=== PATIENT | male | born 1955 | race Two or more races ===

== ENCOUNTER 2018-02-10 17:23 | Emergency (ER) | payer SELFPAY ==
[2018-02-10 17:52] LABS: ADD MAN DIFF? NO
[2018-02-10 17:54] LABS: BASO # 0.1 x10^3/uL (0.0-0.2); BASO % 1 % (0-3); EOS # 0.1 x10^3/uL (0.0-0.7); EOS % 1 % (0-3); HEMATOCRIT 45.4 % (39.0-53.0); HEMOGLOBIN 16.1 g/dL (13.0-17.5); LYMPH # 1.6 x10^3/uL (1.0-4.8); LYMPH % 12 % (24-48); MEAN CORPUSCULAR HEMOGLOBIN 31 pg (25-35); MEAN CORPUSCULAR HGB CONC 35 g/dL (31-37); MEAN CORPUSCULAR VOLUME 88 fL (79-100); MONO # 0.9 x10^3/uL (0.0-1.1); MONO % 7 % (0-9); NEUT # 10.8 x10^3uL (1.8-7.7); NEUT % 81 % (31-73); PLATELET COUNT 238 x10^3/uL (140-400); RED BLOOD COUNT 5.13 x10^6/uL (4.30-5.70); RED CELL DISTRIBUTION WIDTH 13.2 % (11.5-14.5); WHITE BLOOD COUNT 13.4 x10^3/uL (4.0-11.0)
[2018-02-10 18:02] LABS: INR 1.1 (0.8-1.1); PROTHROMBIN TIME PATIENT 13.4 SEC (11.7-14.0)
[2018-02-10 18:06] LABS: ANION GAP 8 (6-14); BLOOD UREA NITROGEN 8 mg/dL (8-26); BUN/CREATININE RATIO 11 (6-20); CALCIUM 8.4 mg/dL (8.5-10.1); CARBON DIOXIDE 27 mmol/L (21-32); CHLORIDE 101 mmol/L (98-107); CREATININE 0.7 mg/dL (0.7-1.3); GFR 114.3; GLUCOSE 316 mg/dL (70-99); SODIUM 136 mmol/L (136-145)
[2018-02-10 18:08] LABS: ETHANOL < 10 mg/dL (0-10)
[2018-02-10 18:12] LABS: ALBUMIN 3.6 g/dL (3.4-5.0); ALBUMIN/GLOBULIN RATIO 0.9 (1.0-1.7); ALK PHOS 144 U/L (46-116); ALT (SGPT) 19 U/L (16-63); AST (SGOT) 20 U/L (15-37); LIPASE 153 U/L (73-393); MAGNESIUM 2.1 mg/dL (1.8-2.4); TOTAL BILIRUBIN 0.6 mg/dL (0.2-1.0); TOTAL PROTEIN 7.6 g/dL (6.4-8.2)
[2018-02-10 18:14] LABS: TROPONINI < 0.017 ng/mL (0.000-0.055)
[2018-02-10 18:20] LABS: CKMB INDEX 0.3 % (0-4); CKMB MASS 1.5 ng/mL (0.0-3.6); CREATINE KINASE 485 U/L (39-308)
[2018-02-10 18:20] LABS: NT-PRO BNP 33 pg/mL (0-124)
[2018-02-10] MEDS: LIDO:MAALOX 1:1 20 ML SINGLE DOSE. SWSW (18:21)
[2018-02-10] MEDS: IV NORMAL SALINE 1000ML BAG 1,000 ML IV (18:21)
[2018-02-10] MEDS: PANTOPRAZOLE IV PUSH 40 MG VIAL. IVP (18:22)
[2018-02-10 18:52] LABS: BILIRUBIN,URINE NEGATIVE (NEG); CLARITY,URINE CLEAR; COLOR,URINE YELLOW; GLUCOSE,URINE >=1000 mg/dL (NEG); NITRITE,URINE NEGATIVE (NEG); PH,URINE 5.5; PROTEIN,URINE NEGATIVE (NEG-TRACE); UROBILINOGEN,URINE 0.2 mg/dL (0.2 mg/dL)
[2018-02-10 18:59] LABS: BARBITURATES NEG (NEG); BENZODIAZEPINES NEG (NEG); CANNABINOIDS NEG (NEG); COCAINE NEG (NEG); METHADONE NEG (NEG); OPIATES NEG (NEG); PHENCYCLIDINE NEG (NEG)
[2018-02-10 19:01] LABS: AMPHETAMINE/METHAMPHETAMINE NEG (NEG); BACTERIA,URINE 0 /HPF (0-FEW); ETHANOL, URINE NEG (NEG); RBC,URINE RARE /HPF (0-2); SQUAMOUS EPITHELIAL CELL,UR OCC /LPF; WBC,URINE RARE /HPF (0-4); YEAST,URINE PRESENT /HPF
== END 2018-02-10 20:40 | disposition home or self-care (01) ==
LOC: ER 17:23
DX: K21.9 Gastro-esophageal reflux disease without esophagitis (principal); E11.8 Type 2 diabetes mellitus with unspecified complications
CPT/HCPCS: 36415; 71045; 76705; 80053; 80307; 81001; 82553; 83690; 83735; 83880; 84443; 84484; 85025; 85610; 93005; 96374; 99285-25; C9113; G0480; J7030